=== PATIENT | male | born 1950 | race Two or more races ===

== ENCOUNTER 2020-02-03 13:34 | Outpatient (CLI) | payer OTHER | END 2020-02-03 14:00 | disposition home or self-care (01) | LOC: OFIC 805 13:34 | PROVIDERS: ATTEND Otolaryngology | DX: H60.8X1 Other otitis externa, right ear (principal); H61.21 Impacted cerumen, right ear ==

== ENCOUNTER 2020-02-08 08:13 | Outpatient (CLI) | payer OTHER | END 2020-02-08 10:00 | disposition home or self-care (01) | LOC: OFIC 805 08:13 | PROVIDERS: ATTEND Otolaryngology | DX: H60.8X1 Other otitis externa, right ear (principal); H61.21 Impacted cerumen, right ear ==

== ENCOUNTER 2020-02-22 12:50 | Outpatient (CLI) | payer OTHER | END 2020-02-22 14:00 | disposition home or self-care (01) | LOC: OFIC 805 12:50 | PROVIDERS: ATTEND Otolaryngology | DX: H60.8X1 Other otitis externa, right ear (principal); H61.21 Impacted cerumen, right ear ==